=== PATIENT | female | born 1960 | race Caucasian/White ===

== ENCOUNTER 2017-01-03 18:26 | Emergency (ER) | payer OTHER ==
[~2017-01-03] VITALS: Ht 162.6 cm; Wt 70.0 kg
[~2017-01-03 18:26] MED LIST: ACET500T98 PO
[2017-01-03 18:40] VITALS: Ht 162.6 cm; Wt 70.0 kg
[2017-01-03] MEDS ORDERED: HYDROCODONE/APAP (5/325) TAB PO STA (20:10)
--- NOTE | 2017-01-03 20:44 | RADRPT ---
PROCEDURE: CT Abdomen and Pelvis without contrast CLINICAL INDICATION: Posterior right-sided pelvic pain, neck pain, G L F TECHNIQUE: Transaxial images were obtained through the abdomen and pelvis on a multi-slice scanner without the intravenous contrast administration. . Sagittal and coronal re-formations were subseque ntly reconstructed. One or more of the following dose reduction techniques were used: - Automated exposure control. - Adjustment of the mA and/or kV according to patient size. - Use of iterative reconstruction technique. Radiation dose: CTDIvol = 9.53 mGy; DLP = 523.59 mGy-cm. COMPARISON: No prior studies are available for comparison. FINDINGS: Lung bases: Minimal compressive changes are seen in the gravity dependent posterior lung goodwin with discoid atelectasis seen in the right posterior sulcus. Liver: 8 2 mm calcified granuloma is seen within the anterior right lobe of the liver. The liver is normal in size and no other focal lesion is evident. Gallbladder: Surgical sean are seen in the gallbladder fossa. Bile ducts: The intra and extrahepatic bile ducts are normal in caliber. Pancreas: Appears normal with no mass or inflammation evident. Spleen: Normal in size with no focal lesion. Adrenals: Normal with no mass identified. Kidneys, ureters and bladder: The kidneys are normal in size and there is no mass, pathological calc ification, or hydronephrosis evident. There is no perinephric stranding. The ureters are normal in c aliber and no ureteroliths are identified. The bladder appears unremarkable. Reproductive organs: The uterus is absent. No adnexal mass is evident. Stomach and bowel: The stomach appears unremarkable. Substantial stool is seen within the colon but there is no evidence of bowel obstruction or inflammation. Appendix: The vermiform appendix is not identified. Peritoneum: No free intraperitoneal fluid or air is identified. There is a small fat containing umbi lical hernia. Aorta: Normal in caliber with no aneurysmal dilatation. There is minimal atherosclerotic vascular ca lcification. IVC: Unremarkable. Lymph nodes: No pathologically enlarged nodes are identified. Osseous structures: The osseous elements appear intact. IMPRESSION: 1. Substantial stool seen in the colon without evidence of bowel obstruction or inflammation. The vermiform appendix is not identified. 2. Status post cholecystectomy and hysterectomy. 3. The solid abdominal organs appear intact and there is no free intraperitoneal fluid or air. 4. Small fat containing umbilical hernia 5. No fracture is identified. 6. Discoid atelectasis within the right posterior sulcus. Dina Eden Physician Date Time Electronically viewed and signed by Dina Eden, Physician on 01/03/2017 20:43 /
--- NOTE | 2017-01-03 21:10 | RADRPT ---
PROCEDURE: Lumbar Spine. CLINICAL INDICATION: Back pain. TECHNIQUE: Three views of the lumbar spine. COMPARISON: None available FINDINGS: The lumbar lordosis is preserved without spondylolisthesis. The vertebral body heights are maintaine d. No acute fracture or subluxation is seen. The patient is status post cholecystectomy. IMPRESSION: 1. No acute fracture or subluxation. RPTAT: HTAR .Miguel Villar MD, MD Date Time Electronically viewed and signed by .Miguel Villar MD, on 01/03/2017 21:10 .R/
--- NOTE | 2017-01-03 21:10 | RADRPT ---
PROCEDURE: Thoracic Spine. CLINICAL INDICATION: Trauma, pain. TECHNIQUE: Single AP view of the thoracic spine. COMPARISON: None available FINDINGS: The examination is limited without a lateral view. The thoracic kyphosis is preserved without spond ylolisthesis. The vertebral body and disk heights are maintained. No acute fracture or subluxation is seen. The visualized lungs are clear. The patient is status post cholecystectomy. IMPRESSION: 1. No acute fracture or subluxation of the thoracic spine is identified, although evaluation is mccartney ited without a lateral view. RPTAT: HTAR .Miguel Villar MD, Date Time Electronically viewed and signed by .Miguel Villar MD, on 01/03/2017 21:10 .R/
--- NOTE | 2017-01-03 21:11 | RADRPT ---
PROCEDURE: Portable chest x-ray. CLINICAL INDICATION: Injury, chest pain. TECHNIQUE: Portable AP view of the chest. COMPARISON: None. FINDINGS: No pulmonary edema or conolidation is identified. The cardiac silhouette is not enlarged. No pleur al effusion is seen. There is no pneumothorax. No fracture is identified. IMPRESSION: 1. No radiographic evidence of traumatic chest injury. RPTAT: HTAR .Miguel Villar MD, MD Date Time Electronically viewed and signed by .Miguel Villar MD, on 01/03/2017 21:11 .R/
[2017-01-03] MEDS ORDERED: HYDR-906 PO (21:14)
[2017-01-03 21:34] VITALS: BP 128/60; PULSE 68; RESP 20
--- NOTE | 2017-01-03 21:42 | ERD ---
ER Documentation Chief Complaint Date/Time DATE: 01/03/17 TIME: 21:30 Chief Complaint sp fall from gate, back pain HPI 56 year old female presents to the emergency department complaining of lumbar back pain, thoracic back pain and abdominal pain status post falling a few steps. Patient states the pain is 8 out of 10. She denies any saddle anesthesia, bladder or bowel incontinence. Patient admits to having mild shortness of breath, she denies any chest pain. She denies taking any medication. Patient denies any head injury, loss of consciousness, dizziness. Denies any nausea vomiting per ROS All systems reviewed and are negative except as per history of present illness. Medications Home Meds Active Scripts Hydrocodone/Acetaminophen ([place] 5-325 Tablet) 1 Each Tablet, 1 TAB PO Q6H Y for PAIN, #20 TAB Prov:ARVIND EVANS PA-C 01/03/17 Reported Medications Acetaminophen (Tylenol) 500 Mg Tab, 500 MG PO DAILY 10/03/11 Allergies Allergies: Coded Allergies: No Known Allergy (Unverified , 10/03/11) PMhx/Soc Medical and Surgical Hx: pt denies Medical Hx, pt denies Surgical Hx History of Surgery: No Anesthesia Reaction: No Hx Neurological Disorder: No Hx Respiratory Disorders: No Hx Cardiac Disorders: No Hx Psychiatric Problems: No Hx Miscellaneous Medical Probl: No Hx Alcohol Use: No Hx Substance Use: No Hx Tobacco Use: Yes Smoking Status: Current every day smoker Physical Exam Vitals Vital Signs Date Time Temp Pulse Resp B/P Pulse Ox O2 Delivery O2 Flow Rate FiO2 01/03/17 18:40 97.8 88 20 152/69 98 Physical Exam Const: [] Head: Atraumatic Eyes: Normal Conjunctiva ENT: Normal External Ears, Nose and Mouth. Neck: Full range of motion..~ No meningismus. Resp: Clear to auscultation bilaterally Cardio: Regular rate and rhythm, no murmurs Abd: Soft, non distended. Normal bowel sounds, patient had mild tenderness to palpation in all quadrants Skin: No petechiae or rashes Back: Tenderness palpation of the lumbar region, tenderness palpation of the thoracic region Ext: No cyanosis, or edema Neur: Awake and alert Psych: Normal Mood and Affect Results 24 hrs Current Medications Medications (Trade) Dose Ordered Sig/Alexia Route PRN Reason Start Time Stop Time Status Last Admin Dose Admin Acetaminophen/ Hydrocodone Bitart ([place] (5/325)) 1 tab ONCE STAT PO 01/03/17 20:10 01/03/17 20:12 DC 01/03/17 21:00 Procedures/MDM This is a 56-year-old female presenting to the emergency department complaining of lumbar and thoracic back pain and abdominal pain status post fall. There was no evidence of any head injury, patient has a normal neurological exam. No evidence of any vertebral fracture dislocation. X-rays do not show any evidence of acute pathology. CT abdomen pelvis was done and did not show any acute intra-abdominal pathology, radiologist stated CT abdomen and pelvis without contrast: 1. Substantial stool seen in the colon without evidence of bowel obstruction or inflammation. The vermiform appendix is not identified. 2. Status post cholecystectomy and hysterectomy. 3. The solid abdominal organs appear intact and there is no free intraperitoneal fluid or air. 4. Small fat containing umbilical hernia 5. No fracture is identified. 6. Discoid atelectasis within the right posterior sulcus. Patient is neurovascular intact and he wanted stable to be discharged home to follow-up with primary care physician. Discussed return to the emergency department for any worsening signs or symptoms. Patient understands and agrees with plan. Prescription for [place] was provided CXR: No evidence of infiltrates, pneumothorax or pleural effusion. No evidence of rib fracture Lumbar XR: No acute fracture or subluxation Thoracic XR: No acute fracture or subluxation Departure Diagnosis: Primary Impression: Fall Additional Impressions: Abdominal muscle strain Back pain Condition: Stable Patient Instructions: Back Pain (Acute Or Chronic), Fall, Mechanical, Muscle Strain, Abdomen Additional Instructions: Visite a helms [facility] [place] para un EXAMEN.Regrese a estas instalaciones si no se mejora krystle esperbamos o krystle le dijimos. [place] toda la medicina neyda y krystle se le indic. Regrese a estas instalaciones si no se mejora krystle esperbamos o krystle le dijimos. La medicina que se le recet puede causarle sueo.NO DEBE MANEJAR NI OPERAR MAQUINARIAS PELIGROSAS mientras esta tomando esta medicina! FOLLOW UP WITH YOUR PRIMARY CARE PHYSICIAN TOMORROW.Return to this facility if you are not improving as expected. Take all medicines as directed. Return to this facility if you are not improving as expected. You have been given a medicine which may cause drowsiness.DO NOT DRIVE OR OPERATE DANGEROUS MACHINERY while taking this medicine! ARVIND EVANS PA-C Jan 03, 2017 21:40
== END 2017-01-03 21:35 | disposition home or self-care (01) ==
LOC: FTE 18:26
DX: S39.011A Strain of muscle, fascia and tendon of abdomen, initial encounter (principal); S29.9XXA Unspecified injury of thorax, initial encounter; F17.210 Nicotine dependence, cigarettes, uncomplicated; W17.89XA Other fall from one level to another, initial encounter; Y92.9 Unspecified place or not applicable
CPT/HCPCS: 71010; 72020; 72100; 74176; Z7502; Z7610

== ENCOUNTER 2017-03-14 07:44 | Day surgery (SDC) | payer OTHER ==
--- NOTE | 2017-03-13 13:55 | PREOPHP ---
DATE OF ADMISSION: 03/14/2017 HISTORY OF PRESENT ILLNESS: This 56-year-old patient is admitted for pterygium excision of the left eye. The patient has had progressive growth of pterygium formation on the corneal surface of both eyes over the past 3 to 4 years without any prior history of eye disease or injury. The patient is not being treated for any systemic illnesses, is currently not on any medication and has no known al lergies. PHYSICAL EXAMINATION: Visual acuity with correction is 20/30 in the right eye and finger counting i n the left eye. Slit lamp examination reveals vascularized pterygium formation on the cornea of bot h eyes, greater in the left eye than in the right eye with the left eye pterygium extending into the visual axis. Applanation tonometry is 18 mmHg. Examination of the retina is within normal limits. DIAGNOSIS: Visually significant pterygium, left eye. PLAN: Pterygium excision with mitomycin C application and conjunctival grafting, left eye. The ris ks and alternatives to the surgery have been discussed with the patient as well as the significant r isk of recurrence of pterygium excision despite the surgical approach being taken. The patient unde rstands this and agrees to proceed with surgery. Dictated By: MARY OCONNOR/ABDULAZIZ Conf#: [id number] DID#: [id number]
[2017-03-14] VITALS (12 sets, daily range): BP systolic 87–119; BP diastolic 51–63; PULSE 52–69; RESP 10–18; Ht 162.6 cm; Wt 70.3 kg
[~2017-03-14] VITALS: Ht 162.6 cm; Wt 70.3 kg
[~2017-03-14 07:44] MED LIST changes: +BALANCED SALT SOLN 15 ML OPH IRRIG ONE; +FENTAnyl 50 MCG/ML VIAL IV PRN; +HYDR-906 PO; +LABETALOL HCL 20MG INJ IV PRN; +MITOMYCIN 5 MG INJ IRR SCH; +ONDANSETRON 4 MG INJ IV PRN; +OXYCODONE/ACETAMINOPHEN (5/325) TAB PO PRN; +SOD CHLORIDE 0.9% 1,000 ML IV SCH
[2017-03-14] MEDS ORDERED: PROPOFOL 20 ML ONE (08:47)
[2017-03-14] MEDS ORDERED: LIDOCAINE 2% (SDV) 5 ML INJ ONE (08:47)
[2017-03-14] MEDS ORDERED: FENTAnyl 50 MCG/ML VIAL ONE ×2 (08:47→11:28)
[2017-03-14] MEDS ORDERED: LIDOCAINE 2%/EPI 30 ML INJ ONE (08:55)
[2017-03-14] MEDS ORDERED: TOBRAMYCIN/DEXAMETH 3.5 GM OPH OINT ONE (08:55)
--- NOTE | 2017-03-14 11:07 | SIPON ---
Date/Time of Note Date/Time of Note DATE: 03/14/17 TIME: 11:05 Operative Report Preoperative Diagnosis Pterygium os Postoperative Diagnosis same Operation/Procedure Performed pterygium excision with mitomycin c application and rotating conjunctival graft os Surgeon Abdiel Puckett certified first assistant none Anesthesia: MAC Estimated blood loss: none Transfusion Required none Specimen pterygium Grafts/Implants none Complications none MARY PUCKETT MD Mar 14, 2017 11:07
--- NOTE | 2017-03-14 11:27 | OPR ---
DATE OF OPERATION: 03/14/2017 PREOPERATIVE DIAGNOSIS: Pterygium, left eye. POSTOPERATIVE DIAGNOSIS: Pterygium, left eye. OPERATION PERFORMED: Pterygium excision with mitomycin C application and rotating conjunctival charlene t, left eye. SURGEON: Mary Jasso. ANESTHESIA: Jonathan Hogan CRNA. DESCRIPTION OF PROCEDURE: The patient was brought to the operating room on an eye gurney attached t o electrocardiogram monitoring, given oxygen via nasal cannula. After some intravenous sedation was administered, the patient received a lid block using Xylocaine 2% with epinephrine in a subcutaneou s block at the lateral canthus. Following this, the patient was prepped and draped in the usual alyse rile manner and then a speculum was inserted between the lids of the left eye. Using the same Xyloc meggan 2% with epinephrine a subconjunctival injection was placed beneath the bed of the pterygium in the nasal quadrant, approximately 1 to 1.5 mL were injected. Using fine Vannas scissors, the conjun ctiva at the base of the pterygium was incised and then tenon's tissue was dissected beneath it to t he corneoscleral limbus. Following this, using a curved blade the pterygium was dissected free from the underlying cornea to the center of the cornea where the head of the pterygium was located. Aft er it was removed, it was submitted for gross specimen only. The corneal bed of the pterygium was t hen polished using a leonardo tipped bur until a smooth surface was noted. Hemostasis was then obtai irma using mild cautery at the corneoscleral limbus. After this was completed, a Weck cell sponge im pregnated with mitomycin 0.03% was placed on the nasal scleral surface where the pterygium had been excised. It was left in place for 1 minute. Following its removal. Copious irrigation with balanc ed salt solution was performed to the same area for an additional minute. After this had been compl eted further conjunctival dissection was done in the superior quadrant, initially by performing a pe ritomy extending from 11 o'clock to 1 o'clock position. The subconjunctival tissue was dissected fr ee beneath it and then the incision of the conjunctiva was carried back by extending the incision helms periorly for approximately 5 mm and then incising the conjunctiva at that superior extent back towar ds the pterygium wound so that a tongue of unaffected conjunctiva from the superior quadrant was rot ated into place over the conjunctival defect where the bed of the pterygium had been situated. Usin g 6-0 Vicryl sutures, 4 interrupted sutures were placed to attach the conjunctival graft to the anabell cent inferior and nasal conjunctiva. All sutures were cut short. However, it was noted that the de fect was completely covered by the graft. Hemostasis was present. The speculum was then removed. TobraDex ophthalmic ointment was placed on the surface of the eye and a pressure patch was applied t o the eye. The patient left the operating room in satisfactory condition. Dictated By: MARY OCONNOR/ABDULAZIZ Conf#: [id number] DID#: [id number]
[2017-03-14] MEDS ORDERED: ONDANSETRON 4 MG INJ ONE (11:29)
[2017-03-14] MEDS ORDERED: FENTAnyl 50 MCG/ML VIAL IV PRN ×2 (11:37→11:40)
[2017-03-14] MEDS ORDERED: OXYCODONE/ACETAMINOPHEN (5/325) TAB PO PRN ×2 (11:38)
[2017-03-14] MEDS ORDERED: LABETALOL HCL 20MG INJ IV PRN (11:39)
[2017-03-14] MEDS ORDERED: ONDANSETRON 4 MG INJ IV PRN (11:39)
== END 2017-03-14 12:45 | disposition home or self-care (01) ==
LOC: SDS 07:44
PROVIDERS: ATTEND Ophthalmology
DX: H11.002 Unspecified pterygium of left eye (principal)
CPT/HCPCS: J2405; J3010; J9280